=== PATIENT | male | born 1940 | race Caucasian/White ===

== ENCOUNTER 2024-07-31 11:02 | Emergency (ER) | payer MEDICARE, SELFPAY ==
[2024-07-31] VITALS (8 sets, daily range): BP systolic 106–117; BP diastolic 49–60; PULSE 60–82; TEMP 36.4; O2SAT 95–96; BMI 26.6
--- NOTE | 2024-07-31 11:33 | PC.NURSE ---
and Son in room at this time. verify's that patient had no known drug allergies.
--- NOTE | 2024-07-31 11:39 | PC.NURSE ---
Patient alert to self only, alzheimer's diagnosis. On arrival skin pink and warm and respirations even and non labored. Lungs have rhonchi that clear with cough.
[2024-07-31] MEDS: LOPERAMIDE HCL 2 MG CAPSULE 4 MG PO (13:38)
--- NOTE | 2024-07-31 14:40 | ED_ITS ---
HPI HPI - General Adult General Chief complaint: Shortness of Breath/Dyspnea Stated complaint: sob Time Seen by Provider: 07/31/24 11:44 Source: other Source information: EMS Mode of arrival: ambulance Limitations: altered mental status History of Present Illness HPI narrative: 83-year-old male to the emergency department with chief complaint of choking episode. Patient was eating his breakfast when he began to choke. Family performed the Heimlich and was able to clear obstruction. He did not lose consciousness. He vomited once afterwards. He is now at his baseline health. He has severe dementia at baseline. He also had some diarrhea. Related Data Allergies Allergy/AdvReac Type Severity Reaction Status Date / Time No Known Drug Allergies Allergy Verified 07/31/24 11:33 Opioid HPI Opioid Management Most Recent Opioid Data: No Data to Display Review of Systems ROS Status of ROS 10 or more systems reviewed and unremark able except as noted in history and below Exam Narrative Exam Narrative: VITALS: I have reviewed the triage vital signs. GENERAL: Well developed, well appearing adult male in no acute distress. NEURO: Alert and oriented x1. Moves all extremities. Face is symmetric and expressive. EYES: PERRL. No scleral icterus or conjunctival injection. No discharge. HENT: Normocephalic, atraumatic. Hearing is grossly intact. Nares grossly patent and without discharge. Mucous membranes moist. NECK: No JVD. Patient moves neck without restriction. CARDIO: Rhythm regular. Normal rate. No murmur, rub, or gallop. Pulses equal bilaterally in the upper and lower extremity. No lower extremity edema. PULM: Lungs clear to auscultation in all mackenzie. Rhonchi that clear with coughing. no wheezes, rales, or rhonchi. No conversational dyspnea. No splinting, stridor, or accessory muscle use. GI/: Abdomen is soft and non-tender. Normoactive bowel sounds. EXTREMITIES: Symmetric muscle bulk. No joint swelling. No clubbing, cyanosis, or deformity. SKIN: Warm and dry. Normal turgor. No rash or lesions appreciated. PSYCH: Mood, affect, and interaction is appropriate to the setting. Constitutional Vital Signs, click to edit/add: Last Vital Signs Temp 97.6 F 07/31/24 11:08 Pulse 66 07/31/24 13:30 Resp 18 07/31/24 13:30 BP 117/60 07/31/24 11:27 Pulse Ox 96 07/31/24 12:30 O2 Del Method Room Air 07/31/24 11:08 Course Vital Signs Vital signs: Vital Signs Temperature 97.6 F 07/31/24 11:08 Pulse Rate 60 07/31/24 11:08 Respiratory Rate 20 07/31/24 11:08 Blood Pressure 106/49 07/31/24 11:08 Pulse Oximetry 96 07/31/24 11:08 Oxygen Delivery Method Room Air 07/31/24 11:08 Temperature 97.6 F 07/31/24 11:08 Pulse Rate 66 07/31/24 13:30 Respiratory Rate 18 07/31/24 13:30 Blood Pressure 117/60 07/31/24 11:27 Pulse Oximetry 96 07/31/24 12:30 Oxygen Delivery Method Room Air 07/31/24 11:08 Medical Decision Making MDM Narrative Medical decision making narrative: 83-year-old male to the emergency department with chief complaint of episode of choking. Vital stable, the patient is afebrile. He has advanced dementia. He provides no history himself. Family was able to clear the Heimlich. His exam is unremarkable he has some faint rhonchi that clear with coughing. Chest x-ray is ordered. He also has some diarrhea, stool studies are ordered he is given a dose of loperamide. Chest x-ray: No acute findings Loperamide was able to control his diarrhea. C. difficile and stool culture were sent. Patient remained in no distress throughout his stay. He will follow- up with his PCP. There is no indication for prophylactic antibiotics in this case. Return precautions were discussed. All questions were answered. The patient was discharged home. Medical Records Medical records reviewed: Yes I reviewed the patient's medical records Imaging Data Chest x-ray: Attestation: I have reviewed the pertinent imaging results. Discharge Plan Discharge Chief Complaint: Shortness of Breath/Dyspnea Clinical Impression: Choking episode, Diarrhea Patient Disposition: Home, Self-Care Time of Disposition Decision: 13:58 Condition: Good Mode of Transportation: Private Vehicle Print Language: Maldivian Instructions: Acute Diarrhea (ED), Aspiration Precautions (ED) Additional Instructions: Call the office of your primary care doctor to arrange for follow-up within the above-stated timeframe. Your ED visit was focused on your acute issue and does not replace primary care. You should review your labs, imaging, and diagnoses from this ED visit with your primary care physician. There may be non-emergent/ incidental findings that need further evaluation. You should review your vital signs including blood pressure with your PCP. If you were prescribed medications you should discuss possible side-effects and drug interactions with your pharmacist. Call 911 or go to the nearest Emergency Department if you develop any new or worsening symptoms. Referrals: ARASH HANCOCK [Primary Care Provider] - 1 week
[2024-07-31 15:44] LABS: C. Difficile PCR NEGATIVE
== END 2024-07-31 14:35 | disposition home or self-care (01) ==
PROVIDERS: Emergency Provider Student in an Organized Health Care Education/Training Program; PCP Internal Medicine
DX: R09.89 Other specified symptoms and signs involving the circulatory and respiratory systems (principal); R19.7 Diarrhea, unspecified; R06.02 Shortness of breath; F03.90 Unspecified dementia, unspecified severity, without behavioral disturbance, psychotic disturbance, mood disturbance, and anxiety
CPT/HCPCS: 71046; 87045; 87046; 87427; 87493; 99284